=== PATIENT | male | born 1950 | race Caucasian/White ===

== ENCOUNTER 2019-10-03 13:10 | Inpatient (IN) | payer BC, MEDICARE ==
[~2019-10-03] VITALS: Ht 177.8 cm; Wt 73.9 kg
--- NOTE | 2019-10-03 13:15 | NUR ---
BIB [facility] FROM HOME,SUDDEN RIGHT HIP PAIN WHILE WALKING IN THE BATHROOM. PATIENT A/OX4, BREATHING EVEN AND UNLABORED, NO SOB NOTED. VITALS STABLE. NEEDS ATTENDED. KEPT COMFORTABLE IN BED, CHANGED INTO GOWN.
[2019-10-03] MEDS ORDERED: MORPHINE SULFATE INJ 2 MG/ML DISP.SYRIN IV ONE (13:30)
[2019-10-03] MEDS ORDERED: MORPHINE SULFATE INJ 2 MG/ML DISP.SYRIN ONE (13:36)
[2019-10-03 13:56] LABS: BASOPHILS # (AUTO) 0.1 /CMM (0.0-0.2); BASOPHILS % (AUTO) 0.5 % (0.0-2.0); EOSINOPHILS % (AUTO) 2.6 % (0.0-6.0); HEMATOCRIT 45 % (39-51); HEMOGLOBIN 14.9 g/dL (13.5-17.5); LYMPHOCYTES # (AUTO) 0.7 /CMM (0.8-4.8); MEAN CORPUSCULAR HGB CONC 33 g/dl (31.0-36.0); MEAN CORPUSCULAR VOLUME 88 fL (80-96); MONOCYTES # (AUTO) 0.7 /CMM (0.1-1.30); MONOCYTES % (AUTO) 5.9 % (2.0-12.0); NEUTROPHILS # (AUTO) 10.6 /CMM (1.8-8.9); PLATELET COUNT (AUTO) 256 /CMM (150-450); RED BLOOD CELL COUNT(AUTO) 5.13 MIL/uL (4.5-6.0); WHITE BLOOD COUNT (AUTO) 12.5 K/uL (4.3-11.0)
[2019-10-03 14:12] LABS: CALCIUM, SERUM 9.5 mg/dL (8.5-10.1); CARBON DIOXIDE 31 mmol/L (21-32); CHLORIDE 101 mmol/L (98-107); GLUCOSE 108 mg/dL (74-106); POTASSIUM 3.7 mmol/L (3.5-5.1); SODIUM SERUM 140 mmol/L (136-145); UREA NITROGEN, BLOOD 19 mg/dL (7-18)
[2019-10-03 14:31] LABS: ALANINE AMINOTRANSFERASE 27 U/L (12-78); ALBUMIN 3.6 g/dL (3.4-5.0); ALKALINE PHOSPHATASE 365 U/L (46-116); ASPARTATE AMINOTRANSFERASE 89 U/L (15-37); BILIRUBIN,DIRECT 0.1 mg/dL (0.0-0.2); BILIRUBIN,TOTAL 0.6 mg/dL (0.2-1.0); TOTAL PROTEIN, SERUM 7.4 g/dL (6.4-8.2)
[2019-10-03] MEDS ORDERED: IOHEXOL-300 100 ML VIAL IV ONE (14:58)
[2019-10-03] MEDS ORDERED: CT SWABBABLE VALVE TRANS SET 1 EA INFUS.SET MC ONE (14:58)
[2019-10-03] MEDS ORDERED: IV NS 0.9% 250 ML IV ONE (14:59)
--- NOTE | 2019-10-03 15:00 | NUR ---
PATIENT IN BED, NO DISTRESS NOTED. NEEDS ATTENDED. URINAL AT BEDSIDE.
--- NOTE | 2019-10-03 15:01 | NUR ---
Paged manager integration for consult
[2019-10-03] MEDS ORDERED: Z GUARD REMEDY 2 OZ OINT TP PRN (16:00)
[2019-10-03] MEDS ORDERED: ACETAMINOPHEN 325 MG TABLET PO PRN (16:00)
[2019-10-03] MEDS ORDERED: MORPHINE SULFATE INJ 2 MG/ML DISP.SYRIN IV PRN (16:00)
[2019-10-03] MEDS ORDERED: ONDANSETRON HCL/PF 4 MG/2 ML VIAL IVP PRN (16:00)
[2019-10-03] MEDS ORDERED: MAGNESIUM HYDROXIDE 30 ML UDC PO PRN (16:00)
[2019-10-03] MEDS ORDERED: MAG HYDROX/AL HYDROX/SIMETH 30 ML UDC PO PRN (16:00)
[2019-10-03] MEDS ORDERED: WARF-58 PO (16:12)
[2019-10-03] MEDS ORDERED: PHEN100C12 PO (16:12)
--- NOTE | 2019-10-03 16:26 | NUR ---
CALLED [facility] FOR TELE.
[2019-10-03 16:35] LABS: C-REACTIVE PROTEIN 5.3 mg/dL (0.0-0.9)
--- NOTE | 2019-10-03 17:11 | NUR ---
DR. FRANCISCO AT BEDSIDE FOR EVAL.
--- NOTE | 2019-10-03 17:11 | NUR ---
REPORT GIVEN TO DUNCAN DE LEON FOR LYRIC.
[2019-10-03] MEDS ORDERED: FEE PK DOSING 1 MIN EA MC ONE (17:18)
--- NOTE | 2019-10-03 17:41 | NUR ---
PATIENT TRANSFERRED TO ROOM 325-1 VIA ACLS PROTOCOL, ENDORSED TO DUNCAN DE LEON. PATIENT IN STABLE CONDITION.
--- NOTE | 2019-10-03 17:50 | NUR ---
BURNISHING MACHINE OPERATOR RECEIVING NOTES PATIENT RECEIVED FROM ED DUE TO R HIP FRACTURE. IN MEDICALLY STABLE CONDITION. PICTURES TAKEN AND FILED. WILL ADMIT PATIENT AND CONTINUE TO MONITOR.
[2019-10-03] MEDS ORDERED: PIPERACILLIN /TAZOBACTAM 3.375 G in IV D5W 50 ML IV ONE (18:00)
[2019-10-03] MEDS ORDERED: PIPERACILLIN /TAZOBACTAM 3.375 G in IV D5W 50 ML IV SCH (18:00)
--- NOTE | 2019-10-03 19:17 | NUR ---
COMMERCIAL LINES ACCOUNT EXECUTIVE CLOSING NOTES PATIENT IN BED, RESTING COMFORTABLY. PATIENT ON ROOM AIR BREATHING EVEN AND UNLABORED. IV ACCESS PRESENT AND INTACT; FLUSHING WELL. ALL SAFETY PRECAUTIONS IN PLACE; BED IN LOW POSITION AND LOCKED, RAILS UP X2, CALL LIGHT WITHIN REACH. WILL ENDORSE TO CASE MANAGEMENT DIRECTOR NURSE.
[2019-10-03 19:30] VITALS: BP 143/83
--- NOTE | 2019-10-03 19:40 | NUR ---
MS RN NOTES PATIENT IN BED, AWAKE, ALERT AND ORIENTED X 4. BREATHING EVEN AND UNLABORED ON ROOM AIR. SHOWS NO SIGNS OF ACUTE RESPIRATORY DISTRESS. NO ACUTE PAIN. IV RAC 18G IS CLEAN DRY AND INTACT. RUNNING ZOSYN. SHOWS NO SIGNS OF INFILTRATION, NO REDNESS. SAFETY PRECAUTIONS IN PLACE. BED IN LOWEST POSITION, LOCKED, AND CALL LIGHT KEPT WITHIN REACH. WILL CONTINUE TO MONITOR.
[2019-10-03 20:44] VITALS: BP 143/83
[2019-10-03] MEDS: VANCOMYCIN HCL 0.75 GM in IV D5W 250 ML IV SCH (21:13)
[2019-10-03] MEDS: HYDROCODONE/APAP 5/325MG 1 EACH TABLET PO PRN (23:11)
[2019-10-04] VITALS (7 sets, daily range): BP systolic 121–131; BP diastolic 69–78
[2019-10-04] MEDS: PIPERACILLIN /TAZOBACTAM 3.375 G in IV D5W 100 ML IV SCH ×2 (00:50→08:00)
[2019-10-04] MEDS: VANCOMYCIN HCL 0.75 GM in IV D5W 250 ML IV SCH ×4 (04:56→21:49)
--- NOTE | 2019-10-04 06:24 | NUR ---
FLOUR BLENDER NOTES BLOOD CULTURE RESULTS GRAM NEGATIVE RODS. NOTIFIED MD, AWAITING RESPONSE. WILL CONTINUE TO MONITOR.
--- NOTE | 2019-10-04 06:46 | NUR ---
FLOTATION TANK OPERATOR NOTES PATIENT IN BED, WITH SLEEP, ALERT AND ORIENTED X 4. BREATHING EVEN AND UNLABORED ON ROOM AIR. SHOWS NO SIGNS OF ACUTE RESPIRATORY DISTRESS. NO ACUTE PAIN. IV RAC 18G IS CLEAN DRY AND INTACT. SHOWS NO SIGNS OF INFILTRATION, NO REDNESS. NEW ORDER OF MERREM ADDED FOR BLOOD CULTURE GRAM NEGATIVE RODS. ALL DUE MEDICATIONS GIVEN. SAFETY PRECAUTIONS IN PLACE. BED IN LOWEST POSITION, LOCKED, AND CALL LIGHT KEPT WITHIN REACH. WILL CONTINUE TO MONITOR.
[2019-10-04 07:06] LABS: CANCER AG, 15-3 21.7 U/mL (0.0-25.0)
[2019-10-04] MEDS ORDERED: IOHEXOL-300 100 ML VIAL IV ONE (07:08)
[2019-10-04] MEDS ORDERED: CT SWABBABLE VALVE TRANS SET 1 EA INFUS.SET MC ONE (07:08)
[2019-10-04] MEDS ORDERED: IV NS 0.9% 250 ML IV ONE (07:08)
--- NOTE | 2019-10-04 07:20 | NUR ---
ms rn received on bed, awake,alert,oriented x4,not in any form of distress, respirations even and unlabored noted, lungs are clear,abdomen soft,positive bowel sounds,denies pain at this time,all needs attended.
--- NOTE | 2019-10-04 07:23 | NUR ---
INTERNATIONAL CONTROLLER NOTES PT LEFT FLOOR [address]
[2019-10-04] MEDS: PANTOPRAZOLE 40 MG TABLET.DR PO SCH (07:30)
--- NOTE | 2019-10-04 08:00 | NUR ---
ms rn patient npo at this time, for sx today of right hip hemiarthroplasty.
--- NOTE | 2019-10-04 08:00 | NUR ---
ms rn received on bed, awake,alert,oriented x4,not in any form distress,respierations even and unlabored.no sob noted, will monitor patient. Addendum: 10/04/19 at 1817 by GLENDY ORDONEZ RN disregard charting, wrong patient.
--- NOTE | 2019-10-04 08:35 | NUR ---
ms mosher new iv inserted at left forearm g 24, old iv is leaking. Addendum: 10/04/19 at 1817 by GLENDY ORDONEZ RN disregard charting, wrong patient.
[2019-10-04 08:36] LABS: BASOPHILS # (AUTO) 0.1 /CMM (0.0-0.2); BASOPHILS % (AUTO) 0.5 % (0.0-2.0); EOSINOPHILS % (AUTO) 4.4 % (0.0-6.0); HEMATOCRIT 40 % (39-51); HEMOGLOBIN 13.2 g/dL (13.5-17.5); LYMPHOCYTES # (AUTO) 1.1 /CMM (0.8-4.8); LYMPHOCYTES % (AUTO) 9.4 % (20.0-44.0); MEAN CORPUSCULAR HGB CONC 33 g/dl (31.0-36.0); MEAN CORPUSCULAR VOLUME 86 fL (80-96); MONOCYTES # (AUTO) 0.9 /CMM (0.1-1.30); MONOCYTES % (AUTO) 7.6 % (2.0-12.0); NEUTROPHILS % (AUTO) 78.1 % (43.0-81.0); PLATELET COUNT (AUTO) 223 /CMM (150-450); RED BLOOD CELL COUNT(AUTO) 4.66 MIL/uL (4.5-6.0); WHITE BLOOD COUNT (AUTO) 11.6 K/uL (4.3-11.0)
[2019-10-04] MEDS: MEROPENEM 1 G in IV NS 0.9% 100 ML IV SCH ×3 (08:51→20:52)
[2019-10-04 08:56] LABS: CALCIUM, SERUM 8.5 mg/dL (8.5-10.1); CREATININE 0.9 mg/dL (0.6-1.3); MAGNESIUM 1.8 mg/dL (1.8-2.4); PHOSPHORUS 3.1 mg/dL (2.5-4.9); POTASSIUM 3.9 mmol/L (3.5-5.1)
[2019-10-04 08:59] LABS: THYROID STIMULATING HORMONE 5.08 uIU/mL (0.358-3.74)
--- NOTE | 2019-10-04 09:00 | NUR ---
ms mosher breakfast served, can't tolerate it per speech therapist, clear liquids recommended.. Addendum: 10/04/19 at 1817 by GLENDY ORDONEZ RN disregard charting, wrong patient.
--- NOTE | 2019-10-04 10:00 | NUR ---
ms mosher was seen by darin garcia w/ orders made and carried out. Addendum: 10/04/19 at 1817 by GLENDY ORDONEZ RN disregard charting, wrong patient.
[2019-10-04] MEDS ORDERED: TRANEXAMIC ACID 1,000 MG in IV NS 0.9% 100 ML IV ONE (10:30)
--- NOTE | 2019-10-04 11:05 | NUR ---
ms mosher received a lactic acid result 5.1, rowena shultzied was told to let emma ashbye it. Addendum: 10/04/19 at 1817 by GLENDY ORDONEZ RN disregard charting, wrong patient.
--- NOTE | 2019-10-04 11:30 | NUR ---
ms rn went down for surgery.
[2019-10-04] MEDS ORDERED: SUCCINYLCHOLINE CHLORIDE 20 MG/ML VIAL ONE (11:46)
[2019-10-04] MEDS ORDERED: BACITRACIN 50000 UNITS/VIAL ONE (12:19)
[2019-10-04] MEDS ORDERED: BUPIVACAINE 0.5 % PF 150 MG/30 ML VIAL ONE (12:19)
--- NOTE | 2019-10-04 12:30 | NUR ---
rn id cardiac care nurse came w/ orders made and carried out. Addendum: 10/04/19 at 1818 by GLENDY ORDONEZ RN disregard charting, wrong patient.
[2019-10-04] MEDS ORDERED: VANCOMYCIN 1 GM VIAL ONE (12:57)
--- NOTE | 2019-10-04 13:47 | NUR ---
ms mosher was assessd by search lead patient to be transferred to icu now. Addendum: 10/04/19 at 1818 by GLENDY ORDONEZ RN disregard charting, wrong patient.
--- NOTE | 2019-10-04 14:00 | NUR ---
ms rn patient came back from s/x, s/p right hemiarthroplasty, site clean and dry, denies pain at this time,all needs attended.
[2019-10-04 14:01] LABS: BASOPHILS % (AUTO) 0.3 % (0.0-2.0); EOSINOPHILS % (AUTO) 1.5 % (0.0-6.0); HEMATOCRIT 41 % (39-51); HEMOGLOBIN 13.4 g/dL (13.5-17.5); LYMPHOCYTES # (AUTO) 0.8 /CMM (0.8-4.8); LYMPHOCYTES % (AUTO) 5.2 % (20.0-44.0); MEAN CORPUSCULAR HGB CONC 33 g/dl (31.0-36.0); MEAN CORPUSCULAR VOLUME 87 fL (80-96); MONOCYTES # (AUTO) 0.6 /CMM (0.1-1.30); MONOCYTES % (AUTO) 3.7 % (2.0-12.0); NEUTROPHILS # (AUTO) 13.5 /CMM (1.8-8.9); NEUTROPHILS % (AUTO) 89.3 % (43.0-81.0); PLATELET COUNT (AUTO) 198 /CMM (150-450); RED BLOOD CELL COUNT(AUTO) 4.72 MIL/uL (4.5-6.0); WHITE BLOOD COUNT (AUTO) 15.1 K/uL (4.3-11.0)
[2019-10-04] MEDS ORDERED: IV LR 1000 ML 1,000 ML IV PRN (14:30)
[2019-10-04] MEDS ORDERED: HYDROCODONE/APAP 5/325MG 1 EACH TABLET PO PRN (14:30)
--- NOTE | 2019-10-04 18:23 | NUR ---
ms rn on bed, all needs attended.
--- NOTE | 2019-10-04 19:54 | NUR ---
RN NOTES PATIENT IN BED, AWAKE, ALERT AND ORIENTED X 4. BREATHING EVEN AND UNLABORED ON ROOM AIR. SHOWS NO SIGNS OF ACUTE RESPIRATORY DISTRESS. NO ACUTE PAIN. IV RAC AND R FOREARM 18G IS CLEAN DRY AND INTACT. SHOWS NO SIGNS OF INFILTRATION, NO REDNESS. S/P R HEMIATHROPLASTY BY DR. RAMIREZ. SAFETY PRECAUTIONS IN PLACE. BED IN LOWEST POSITION, LOCKED, AND CALL LIGHT KEPT WITHIN REACH. WILL CONTINUE TO MONITOR.
[2019-10-04] MEDS: CEFAZOLIN 2 GM in IV D5W 100 ML IV SCH (20:20)
[2019-10-05] VITALS: BP 130/75
[2019-10-05] MEDS: CEFAZOLIN 2 GM in IV D5W 100 ML IV SCH (03:54)
[2019-10-05 04:21] LABS: BASOPHILS # (AUTO) 0.2 /CMM (0.0-0.2); BASOPHILS % (AUTO) 1.4 % (0.0-2.0); EOSINOPHILS % (AUTO) 1.7 % (0.0-6.0); HEMATOCRIT 40 % (39-51); LYMPHOCYTES # (AUTO) 0.9 /CMM (0.8-4.8); LYMPHOCYTES % (AUTO) 6.7 % (20.0-44.0); MEAN CORPUSCULAR HGB CONC 33 g/dl (31.0-36.0); MEAN CORPUSCULAR VOLUME 86 fL (80-96); MONOCYTES # (AUTO) 0.9 /CMM (0.1-1.30); MONOCYTES % (AUTO) 6.6 % (2.0-12.0); NEUTROPHILS % (AUTO) 83.6 % (43.0-81.0); PLATELET COUNT (AUTO) 213 /CMM (150-450); RED BLOOD CELL COUNT(AUTO) 4.57 MIL/uL (4.5-6.0); WHITE BLOOD COUNT (AUTO) 13.1 K/uL (4.3-11.0)
[2019-10-05 04:31] VITALS: BP 129/75
[2019-10-05] MEDS: MEROPENEM 1 G in IV NS 0.9% 100 ML IV SCH ×3 (04:40→20:54)
[2019-10-05 04:48] LABS: CALCIUM, SERUM 8.6 mg/dL (8.5-10.1)
[2019-10-05 04:52] VITALS: BP 129/75
[2019-10-05] MEDS: VANCOMYCIN HCL 0.75 GM in IV D5W 250 ML IV SCH ×3 (05:18→21:35)
--- NOTE | 2019-10-05 06:56 | NUR ---
POWERHOUSE OILER NOTES PATIENT IN BED, WITH SLEEP, ALERT AND ORIENTED X 4. BREATHING EVEN AND UNLABORED ON ROOM AIR. SHOWS NO SIGNS OF ACUTE RESPIRATORY DISTRESS. NO ACUTE PAIN. IV RAC 18G AND R WRIST 18G IS CLEAN DRY AND INTACT RUNNING LR AT 75ML/HR.. SHOWS NO SIGNS OF INFILTRATION, NO REDNESS. ALL DUE MEDICATIONS GIVEN. SAFETY PRECAUTIONS IN PLACE. BED IN LOWEST POSITION, LOCKED, AND CALL LIGHT KEPT WITHIN REACH. WILL ENDORSE TO ONCOMING NURSE.
--- NOTE | 2019-10-05 07:30 | NUR ---
RN OPENING NOTE Patient is resting in bed, A/O x4, showing no signs of acute distress or SOB, 96% on RA. IV line in the RAC#18g is clean and intact. Patient has no complaints of pain at this time. Surgical site noted and is clean and dry. Bed is in lowest position, side rails x3 in upright position, call light is within reach and patient is aware of how to call for assistance when needed. Will continue with plan of care.
[2019-10-05 08:00] VITALS: BP 123/85
[2019-10-05] MEDS: PANTOPRAZOLE 40 MG TABLET.DR PO SCH (08:03)
[2019-10-05] MEDS: ENOXAPARIN SODIUM 40 MG/0.4 ML DISP.SYRIN SQ SCH (09:00)
--- NOTE | 2019-10-05 10:00 | NUR ---
RN NOTE Received order from Micky JAMES to DC talavera catheter. Talavera Dc'd urinal at the bedside.
[2019-10-05 16:00] VITALS: BP 142/88
--- NOTE | 2019-10-05 19:20 | NUR ---
RN CLOSING NOTE Patient is resting in bed, A/O x4, showing no signs of acute distress or SOB, 96% on RA. IV line in the RAC#18g is clean and intact. Patient has no complaints of pain at this time. Surgical site noted and is clean and dry. All patient needs met, all due medications given. Patient kept clean and dry throughout shift. Bed is in lowest position, side rails x3 in upright position, call light is within reach and patient is aware of how to call for assistance when needed. Will continue with plan of care.
--- NOTE | 2019-10-05 19:30 | NUR ---
MS RN NOTES RECEIVED ON BED ON HIGH FOWLERS POSITION,BREATHING REGULAR,NOT IN ANY FORM OF DISTRESS,S/P RIGHT HIP DEVEN ARTHROPLASTY 0N 10/03,DRESSING INTACT AND DRY.PAIN TOLERABLE AT THE MOMENT.SALINE LOCK RIGHT AC INTACT AND PATENT.REFUSED DVT PUMP,ON GEL BED FOR SKIN MANAGEMENT.CALL LIGHT IN REACH,NEEDS ANTICIPATED.
[2019-10-05 20:00] VITALS: BP 139/87
[2019-10-06] MEDS: VANCOMYCIN HCL 0.75 GM in IV D5W 250 ML IV SCH ×3 (05:00→21:12)
--- NOTE | 2019-10-06 05:00 | NUR ---
MS RN NOTES MORNING CARE RENDERED,TOLERATED WELL.PAIN TOLERABLE.ABDUCTION PILLOW IN USED.
[2019-10-06] MEDS: MEROPENEM 1 G in IV NS 0.9% 100 ML IV SCH ×3 (06:02→20:40)
--- NOTE | 2019-10-06 06:17 | NUR ---
MS RN NOTES FAIRLY RESTED,SLEPT WELL AT NIGHT.IV ABX GIVEN,NO ADVERSE SIDE EFFECT NOTED.OFFERED PAIN MEDICINE BUT REFUSED.SAYS 'I'M OKAY".SALINE LOCK REMAINS PATENT ON RIGHT AC.CALL LIGHT IN REACH,NEEDS ATTENDED.WILL ENDORSE TO FAVIOLA DE LEON FOR LYRIC.
[2019-10-06 07:20] LABS: BASOPHILS % (AUTO) 0.1 % (0.0-2.0); EOSINOPHILS % (AUTO) 0.7 % (0.0-6.0); HEMATOCRIT 41 % (39-51); HEMOGLOBIN 13.6 g/dL (13.5-17.5); LYMPHOCYTES # (AUTO) 1.1 /CMM (0.8-4.8); LYMPHOCYTES % (AUTO) 6.3 % (20.0-44.0); MEAN CORPUSCULAR HGB CONC 33 g/dl (31.0-36.0); MEAN CORPUSCULAR VOLUME 87 fL (80-96); MONOCYTES # (AUTO) 1.5 /CMM (0.1-1.30); MONOCYTES % (AUTO) 8.5 % (2.0-12.0); NEUTROPHILS # (AUTO) 14.5 /CMM (1.8-8.9); NEUTROPHILS % (AUTO) 84.4 % (43.0-81.0); PLATELET COUNT (AUTO) 241 /CMM (150-450); RED BLOOD CELL COUNT(AUTO) 4.76 MIL/uL (4.5-6.0); WHITE BLOOD COUNT (AUTO) 17.2 K/uL (4.3-11.0)
[2019-10-06 07:21] LABS: CALCIUM, SERUM 8.9 mg/dL (8.5-10.1); CREATININE 0.9 mg/dL (0.6-1.3); POTASSIUM 3.9 mmol/L (3.5-5.1)
--- NOTE | 2019-10-06 07:55 | NUR ---
MS/RN Opening note Patient received from retail shift supervisor. A/O X4, vital signs within normal range for patient, denies pain at this time. Heplock to right AC flushing well with normal saline, no signs of infiltration seen. Call light within reach, patient aware of how to use and call for help. Side rails X3 in upright position, bed in low setting. Will continue to monitor and ensure safety.
[2019-10-06 08:00] VITALS: BP 135/83
[2019-10-06] MEDS: ENOXAPARIN SODIUM 40 MG/0.4 ML DISP.SYRIN SQ SCH (08:26)
[2019-10-06] MEDS: PANTOPRAZOLE 40 MG TABLET.DR PO SCH (08:26)
[2019-10-06] MEDS: HYDROCODONE/APAP 5/325MG 1 EACH TABLET PO PRN (08:40)
--- NOTE | 2019-10-06 08:45 | NUR ---
MS/RN Pre medicate Patient pre medicated per PT request, will ambulate patient at 0930
--- NOTE | 2019-10-06 10:00 | NUR ---
MS/RN PT Patient ambulating in hallway using walker with PT.
--- NOTE | 2019-10-06 14:00 | NUR ---
MS/RN Rounds Denies pain or discomfort. No needs at this time.
[2019-10-06 16:00] VITALS: BP 179/77
--- NOTE | 2019-10-06 17:31 | NUR ---
MS/RN Medications IVAB administered as ordered, no reaction noted.
--- NOTE | 2019-10-06 18:12 | NUR ---
MS/RN End note Patient remains in stable condition. No new needs or concerns at this time, denies pain or discomfort. Will endorse to prosthetist.
--- NOTE | 2019-10-06 19:35 | NUR ---
MS RN NOTES RECEIVED ON BED A/O X4,BREATHING REGULAR,NOT IN ANY FORM OF DISTRESS.SALINE LOCK RIGHT AC INTACT AND PATENT,SURGICAL INCISION WITH DRESSING INTACT AND DRY.INCONTINENT OF URINE.PAIN TOLERABLE AT THE MOMENT.CALL LIGHT IN REACH,NEEDS ANTICIPATED.
[2019-10-06 20:00] VITALS: BP 137/79
[2019-10-07] MEDS: MEROPENEM 1 G in IV NS 0.9% 100 ML IV SCH ×2 (04:39→13:54)
[2019-10-07] MEDS: VANCOMYCIN HCL 0.75 GM in IV D5W 250 ML IV SCH ×2 (05:41→14:39)
[2019-10-07 06:22] LABS: BASOPHILS % (AUTO) 0.2 % (0.0-2.0); EOSINOPHILS % (AUTO) 1.2 % (0.0-6.0); HEMATOCRIT 41 % (39-51); HEMOGLOBIN 13.4 g/dL (13.5-17.5); LYMPHOCYTES # (AUTO) 0.9 /CMM (0.8-4.8); LYMPHOCYTES % (AUTO) 5.7 % (20.0-44.0); MEAN CORPUSCULAR HGB CONC 33 g/dl (31.0-36.0); MEAN CORPUSCULAR VOLUME 86 fL (80-96); MONOCYTES # (AUTO) 1.2 /CMM (0.1-1.30); MONOCYTES % (AUTO) 7.6 % (2.0-12.0); NEUTROPHILS # (AUTO) 13.9 /CMM (1.8-8.9); NEUTROPHILS % (AUTO) 85.3 % (43.0-81.0); PLATELET COUNT (AUTO) 254 /CMM (150-450); RED BLOOD CELL COUNT(AUTO) 4.69 MIL/uL (4.5-6.0); WHITE BLOOD COUNT (AUTO) 16.4 K/uL (4.3-11.0)
--- NOTE | 2019-10-07 06:36 | NUR ---
MS RN NOTES FAIRLY RESTED AT NIGHT.ALL DUE IV ABX ADMINISTERED,NO COMPLAINTS OF PAIN THRU OUT SHIFT.CALL LIGHT IN REACH,NEEDS ATTENDED.WILL ENDORSE TO DAY NURSE FOR LYRIC.
[2019-10-07 06:48] LABS: CALCIUM, SERUM 8.8 mg/dL (8.5-10.1); CREATININE 0.8 mg/dL (0.6-1.3); POTASSIUM 3.6 mmol/L (3.5-5.1)
--- NOTE | 2019-10-07 07:15 | NUR ---
MS RN OPENING NOTES RECEIVED PT IN BED, AWAKE AT THIS TIME. HOB ELEVATED TO SEMI FOWLERS POSITION. BREATHING EVEN AND UNLABORED. PT APPEARS COMFORTABLE WITH NO S/S OF ANY ACUTE DISTRESS. ,S/P RIGHT HIP DEVEN ARTHROPLASTY 0N 10/03, DRESSING INTACT AND DRY. NO C/O PAIN AT THIS TIME. IV ACCESS ON RAC G#18, INTACT AND PATENT. SAFETY PRECAUTIONS IN PLACE. BED IN LOCKED LOWEST POSITION, SIDE RAILS UP X 2. CALL LIGHT WITHIN REACH. WILL CONTINUE TO MONITOR
[2019-10-07 07:57] VITALS: BP 130/80
[2019-10-07] MEDS: PANTOPRAZOLE 40 MG TABLET.DR PO SCH (08:22)
[2019-10-07] MEDS: ENOXAPARIN SODIUM 40 MG/0.4 ML DISP.SYRIN SQ SCH (08:30)
--- NOTE | 2019-10-07 08:30 | NUR ---
PT REFUSED ADMINISTRATION OF LOVENOX 40MG/0.4ML SQ. PT TEACHINGS GIVEN AND PT VERBALIZED UNDERSTANDING. JERRELL ROVING WEIGHT GAUGER, WAS MADE AWARE
[2019-10-07 16:04] VITALS: BP 146/89
--- NOTE | 2019-10-07 18:43 | NUR ---
MS RN CLOSING NOTES PT IN BED, AWAKE AT THIS TIME. HOB ELEVATED TO SEMI FOWLERS POSITION. PT REMAINED STABLE THROUGHOUT SHIFT AND AT THIS TIME. ALL NEEDS ATTENDED TO AND ANTICIPATED ORDERED. PT KEPT CLEAN AND DRY. SAFETY PRECAUTIONS IN PLACE. BED IN LOCKED LOWEST POSITION, SIDE RAILS UP X 2. CALL LIGHT WITHIN REACH. WILL ENDORSE TO NIGHT NURSE FOR LYRIC
--- NOTE | 2019-10-07 19:10 | NUR ---
RN Notes Received patient awake, alert and oriented x4, on room air and tolerated well. Denies any pain and discomfort. IV access on right AC patent and intact. Abductor pillow in place between legs.Plan of care discussed with the patient and verbalized understanding. Safety measures in place. All needs attended. Will continue to monitor patient.
[2019-10-07 20:00] VITALS: BP 136/87
[2019-10-07] MEDS: CEFAZOLIN 2 GM in IV NS 0.9% 100 ML IV SCH (20:54)
[2019-10-07 22:00] VITALS: BP 136/87
[2019-10-08] MEDS: CEFAZOLIN 2 GM in IV NS 0.9% 100 ML IV SCH (04:52)
--- NOTE | 2019-10-08 06:25 | NUR ---
RN Notes Patient sleep well overnight, vital signs stable, afebrile. Denies pain and discomfort, kept abductor pillow between the legs. All needs met. Will endorse for continuity of care.
--- NOTE | 2019-10-08 07:10 | NUR ---
MS RN OPENING NOTES RECEIVED PT IN BED, AWAKE AT THIS TIME. AO X4. BREATHING EVEN AND UNLABORED. PT APPEARS COMFORTABLE WITH NO S/S OF ANY ACUTE DISTRESS. PT ABLE TO VERBALIZE NEEDS. S/P RIGHT HIP DEVEN ARTHROPLASTY 0N 10/03, DRESSING INTACT AND DRY. NO C/O PAIN AT THIS TIME. IV ACCESS ON RAC G#18, INTACT AND PATENT. PT USES URINAL. SAFETY PRECAUTIONS IN PLACE. BED IN LOCKED LOWEST POSITION, SIDE RAILS UP X 2. CALL LIGHT WITHIN REACH. WILL CONTINUE TO MONITOR
[2019-10-08 07:48] LABS: BASOPHILS # (AUTO) 0.1 /CMM (0.0-0.2); BASOPHILS % (AUTO) 0.4 % (0.0-2.0); EOSINOPHILS % (AUTO) 3.1 % (0.0-6.0); HEMATOCRIT 40 % (39-51); LYMPHOCYTES # (AUTO) 0.8 /CMM (0.8-4.8); LYMPHOCYTES % (AUTO) 5.8 % (20.0-44.0); MEAN CORPUSCULAR HGB CONC 33 g/dl (31.0-36.0); MEAN CORPUSCULAR VOLUME 87 fL (80-96); MONOCYTES # (AUTO) 0.9 /CMM (0.1-1.30); MONOCYTES % (AUTO) 6.5 % (2.0-12.0); NEUTROPHILS # (AUTO) 12.1 /CMM (1.8-8.9); NEUTROPHILS % (AUTO) 84.2 % (43.0-81.0); PLATELET COUNT (AUTO) 291 /CMM (150-450); WHITE BLOOD COUNT (AUTO) 14.3 K/uL (4.3-11.0)
[2019-10-08 08:00] VITALS: BP 130/78
[2019-10-08 08:03] LABS: CALCIUM, SERUM 8.6 mg/dL (8.5-10.1); CREATININE 0.8 mg/dL (0.6-1.3); POTASSIUM 3.6 mmol/L (3.5-5.1)
[2019-10-08] MEDS: PANTOPRAZOLE 40 MG TABLET.DR PO SCH (08:26)
[2019-10-08] MEDS: ENOXAPARIN SODIUM 40 MG/0.4 ML DISP.SYRIN SQ SCH (08:38)
[2019-10-08] MEDS ORDERED: CEFT2FRO2 IV (11:59)
[2019-10-08] MEDS ORDERED: HYDR-3972 PO (11:59)
[2019-10-08] MEDS ORDERED: CEFTRIAXONE 2 G in IV D5W 100 ML IV SCH (13:00)
--- NOTE | 2019-10-08 16:03 | NUR ---
MS RN NOTES MIDLINE INSERTED ON JOSE ALEJANDRO G# 18. NO BLEEDING, NO SWELLING NOTED
--- NOTE | 2019-10-08 16:30 | NUR ---
DISCHARGED HOME WITH HOME HEALTH ([facility]STED HOME HEALTH) . IV [facility] .WITH STABLE V/S.IV H/L REMOVED TO RT AC WITH NO BLEEDINGOR SWELLING NOTED. PT REFUSED DRESSING CHANGE RT HIP SURGICAL INCISION.DRESSING CLEAN AND DRY.PT IS SO EAGER TO GO HOME.PT WAS PICKED UP BY HIS FRIEND GERRI VIA PRIVATE CAR.DISCHARGE INSTRUCTIONS AND FOLLOW UPS GIVEN.
== END 2019-10-08 16:30 | disposition home health service (06) | DRG 469 ==
LOC: ER 13:15 → TELE 16:46 → MED 10-05 12:28
PROVIDERS: ADMIT Registered Nurse; ATTEND Nurse Practitioner Acute Care
PROC: 0QW604Z Revision of Internal Fixation Device in Right Upper Femur, Open Approach (ICD-10-PCS; 2019-10-03)
PROC: 0SRR0JZ Replacement of Right Hip Joint, Femoral Surface with Synthetic Substitute, Open Approach (ICD-10-PCS; principal; 2019-10-04)
DX: M84.459A Pathological fracture, hip, unspecified, initial encounter for fracture (principal); J15.6 Pneumonia due to other Gram-negative bacteria; C78.02 Secondary malignant neoplasm of left lung; C78.7 Secondary malignant neoplasm of liver and intrahepatic bile duct; J91.0 Malignant pleural effusion; C79.51 Secondary malignant neoplasm of bone; C79.70 Secondary malignant neoplasm of unspecified adrenal gland; J98.11 Atelectasis; R64 Cachexia; C18.9 Malignant neoplasm of colon, unspecified; M46.28 Osteomyelitis of vertebra, sacral and sacrococcygeal region; Y93.01 Activity, walking, marching and hiking; Y92.002 Bathroom of unspecified non-institutional (private) residence as the place of occurrence of the external cause; I25.10 Atherosclerotic heart disease of native coronary artery without angina pectoris; Z90.49 Acquired absence of other specified parts of digestive tract; I11.0 Hypertensive heart disease with heart failure; I50.9 Heart failure, unspecified; Z87.19 Personal history of other diseases of the digestive system; Z86.711 Personal history of pulmonary embolism; Z85.528 Personal history of other malignant neoplasm of kidney; Z85.048 Personal history of other malignant neoplasm of rectum, rectosigmoid junction, and anus; Z80.3 Family history of malignant neoplasm of breast; Z79.01 Long term (current) use of anticoagulants; E61.1 Iron deficiency; R56.9 Unspecified convulsions; Z90.2 Acquired absence of lung [part of]
CPT/HCPCS: 36415; 71045-TC; 71260-TC; 72170-TC; 73502; 73700-TC; 80048-TC; 80061-TC; 80076-TC; 80202-TC; 82378; 82728-TC; 83540-TC; 83605-TC; 83615-TC; 83735-TC; 84100-TC; 84439-TC; 84443-TC; 84484-TC; 85025-TC; 85730-TC; 86140-TC; 86300; 86304; 86850-TC; 86921-TC; 87040-TC; 87081-TC; 87186-TC; 88305-TC; 88311-TC; 88341; 88342; 93307-TC; 97110-TC; 97116-TC; 97530-TC; A4217; C1776; G0378; J0330; J0690; J0696; J1100; J1650; J2185; J2270; J2405; J2543; J3370; J3490; J7030; J7050; J7060; J7120; Q9967

== ENCOUNTER 2019-11-04 12:45 | Inpatient (IN) | payer BC, MEDICARE ==
[~2019-11-04] VITALS: Ht 177.8 cm; Wt 68.5 kg
[~2019-11-04 12:45] MED LIST: CEFT2FRO2 IV; HYDR-3972 PO; PHEN100C12 PO; WARF-58 PO
--- NOTE | 2019-11-04 12:55 | NUR ---
[id number] FRM HOME FOR WEAKNESS, GLF LAST NIGHT AND NOTED BLOOD IN STOOL THIS MORNING. BG 98 ORDER DISPATCHER PATIENT A/OX2-3 WITH CONFUSION AT TIMES. PATIENT CHANGED INTO A GOWN, ATTACHED TO THE TOOL DESIGN DRAFTSPERSON.
[2019-11-04] MEDS ORDERED: DIPH1TAB PO (13:11)
[2019-11-04] MEDS ORDERED: HYDR-4384 PO (13:11)
[2019-11-04] MEDS ORDERED: LEVO150T8 PO (13:11)
--- NOTE | 2019-11-04 13:12 | NUR ---
PAGED [facility].
[2019-11-04 13:20] LABS: BASOPHILS # (AUTO) 0.1 /CMM (0.0-0.2); BASOPHILS % (AUTO) 0.5 % (0.0-2.0); EOSINOPHILS % (AUTO) 2.4 % (0.0-6.0); HEMATOCRIT 43 % (39-51); HEMOGLOBIN 14.1 g/dL (13.5-17.5); LYMPHOCYTES # (AUTO) 1.2 /CMM (0.8-4.8); LYMPHOCYTES % (AUTO) 7.3 % (20.0-44.0); MEAN CORPUSCULAR HGB CONC 33 g/dl (31.0-36.0); MEAN CORPUSCULAR VOLUME 88 fL (80-96); MONOCYTES # (AUTO) 1.3 /CMM (0.1-1.30); MONOCYTES % (AUTO) 8.2 % (2.0-12.0); NEUTROPHILS # (AUTO) 13.1 /CMM (1.8-8.9); NEUTROPHILS % (AUTO) 81.6 % (43.0-81.0); PLATELET COUNT (AUTO) 279 /CMM (150-450); RED BLOOD CELL COUNT(AUTO) 4.91 MIL/uL (4.5-6.0); WHITE BLOOD COUNT (AUTO) 16.1 K/uL (4.3-11.0)
[2019-11-04] MEDS ORDERED: WARF7.5T23 PO (13:24)
[2019-11-04] MEDS ORDERED: CAPE500T PO (13:25)
[2019-11-04] MEDS ORDERED: CAPE500T15 PO (13:25)
[2019-11-04 13:29] LABS: CALCIUM, SERUM 9.8 mg/dL (8.5-10.1); CARBON DIOXIDE 29 mmol/L (21-32); CHLORIDE 99 mmol/L (98-107); CREATININE 0.9 mg/dL (0.6-1.3); GLUCOSE 81 mg/dL (74-106); SODIUM SERUM 137 mmol/L (136-145); UREA NITROGEN, BLOOD 33 mg/dL (7-18)
--- NOTE | 2019-11-04 13:38 | NUR ---
LACTIC 2.4
[2019-11-04 13:42] LABS: ALANINE AMINOTRANSFERASE 32 U/L (12-78); ALBUMIN 3.4 g/dL (3.4-5.0); ALKALINE PHOSPHATASE 767 U/L (46-116); ASPARTATE AMINOTRANSFERASE 184 U/L (15-37); B-TYPE NATRIURETIC PEPTIDE 2936 PG/ML (0-125); BILIRUBIN,DIRECT 0.2 mg/dL (0.0-0.2); BILIRUBIN,TOTAL 0.8 mg/dL (0.2-1.0); TOTAL PROTEIN, SERUM 7.4 g/dL (6.4-8.2)
[2019-11-04] MEDS ORDERED: VANCOMYCIN HCL 1 GM in IV D5W 260 ML IV ONE (14:00)
[2019-11-04] MEDS ORDERED: PIPERACILLIN /TAZOBACTAM 3.375 G in IV D5W 50 ML IV ONE (14:00)
[2019-11-04 14:24] LABS: BAND % (MANUAL) 4 % (0.0-5.0); LYMPHOCYTES % (MANUAL) 10 % (16-48); NEUTROPHILS % (MANUAL) 77 (42-76)
[2019-11-04 14:25] LABS: EOSINOPHILS % (MANUAL) 3 % (0-4); MONOCYTES % (MANUAL) 6 % (0-11.0)
--- NOTE | 2019-11-04 14:42 | NUR ---
PATIENT RESTING, NO DISTRESS NOTED. PATIENT WAS SEEN AND EVALUATED BY RAUL GRACE DNP.
[2019-11-04 16:00] VITALS: BP 126/66
[2019-11-04] MEDS ORDERED: MAG HYDROX/AL HYDROX/SIMETH 30 ML UDC PO PRN (16:00)
[2019-11-04] MEDS ORDERED: ACETAMINOPHEN 325 MG TABLET PO PRN (16:00)
[2019-11-04] MEDS ORDERED: TEMAZEPAM 15 MG CAPSULE PO PRN (16:00)
[2019-11-04] MEDS ORDERED: Z GUARD REMEDY 2 OZ OINT TP PRN (16:00)
[2019-11-04] MEDS ORDERED: MORPHINE SULFATE INJ 2 MG/ML DISP.SYRIN IV PRN (16:00)
[2019-11-04] MEDS ORDERED: MAGNESIUM HYDROXIDE 30 ML UDC PO PRN (16:00)
[2019-11-04] MEDS ORDERED: ONDANSETRON HCL/PF 4 MG/2 ML VIAL IVP PRN (16:00)
--- NOTE | 2019-11-04 16:40 | NUR ---
PATIENT TRANSFERRED TO ROOM 110 VIA ACLS PROTOCOL. ENDORSED TO JANELLE RN. PATIENT NOTED TO HAVE A WOUND ON RIGHT HIP. PATIENT HAD A BM AND PERICARE PROVIDED.
[2019-11-04] MEDS ORDERED: FEE PK DOSING 1 MIN EA MC ONE (16:46)
--- NOTE | 2019-11-04 16:46 | NUR ---
rn notes patient received from ER. right hip open wound present, scratches to r elbow and bruise on head. Photos taken and TOWER ERECTOR Osmani Mosqueda aware.
[2019-11-04] MEDS ORDERED: LORAZEPAM INJ 2 MG/ML VIAL IV PRN (17:30)
--- NOTE | 2019-11-04 18:08 | NUR ---
rn notes Patient remains on room air, no sob noted, vital signs stable and patient denies pain at this time. A/O x4 and is able to verbalize needs and wants. Tele box on, with NSR. R hip open wound with mepilexOsmani aware. Bed at the lowest setting, call light within reach, side rails up x2.
--- NOTE | 2019-11-04 19:10 | NUR ---
RN NOTES: RECEIVED AWAKE ON BED HE IS HOLDING HIS PHONE,A/OX1, HE KNOWS HIS NAME, BUT WHEN YOU ASKED HIS QUESTION HE LOOKS CONFUSED AND UNABLE TO GIVE INFORMATION WELL. WITH IVF ONGOING OF NS AT 75 ML/HR VIA LAC G#18, ON TELE MONITOR ST-115, ON NPO HE HAS A RIGHT HIP WOUND, DRESSING INTACT, BIOMED TECH IS AWARE PER ENDORSEMENT.ORIENTED TO UNIT AND STAFF,BED LOW AND LOCKED, CALL LIGHT KEPT WITHIN EASY REACH.FALL,SAFETY AND ASPIRATION PRECAUTION OBSERVED, NON LABORED BREATHING ON O2 AT 2-3L/MIN VIA NC.
--- NOTE | 2019-11-04 19:20 | NUR ---
RN NOTES: DR. PORTILLO(ONCOLOGIST) CALLED, SHE NOTIFY RN THAT SHE WILL START KEPPRA AND DECADRON IV, SHE ASKED HOW IS THE PATIENT, RN NOTIFIED THAT PATIENT LOOKS CONFUSED HE ONLY KNOWS HIS NAME AND UNABLE TO GIVE INFORMATION, ALSO NOTIFIED IF ITS OK WE WILL PUT HIM IN CONDOM CATH SO THAT WE CAN MONITOR HIS OUTPUT,PER OUTGOING SHIFT HE DONT HAVE URINE OUTPUT YET, SHE AGREED.SHE ALSO ASKED FOR THE TELEPHONE NUMBER OF RESPONSIBLE LIBERTARIAN BECAUSE SHE WANTS TO DISCUSS THE GOAL FOR THE PATIENT STAY, AND WILL DO CT SCAN OF THE CHEST WITH CONTRAST.
--- NOTE | 2019-11-04 19:55 | NUR ---
RN NOTES; - PROCEDURE WAS EXPLAINED TO PATIENT WELL TO [employer],ABLE TO GET CONSENT FROM MR.MEAD HERNÁNDEZ-[employer] FOR THE PATIENT THROUGH TELEPHONE CONSENT AND WITNESSED BY ANOTHER RN-DOM, WE WERE BOTH ABLE TO SPEAK WITH MR. HERNÁNDEZ AND HE VERBALLY SAY HE AGREE TO DO THE CT. CHEST WITH CONTRAST. -AFTER CONSENT OBTAIN CALLED RADIOLOGY DEPARTMENT SPOKE WITH RAI ,NOTIFIED, PATIENT IS READY AND CONSENT TAKEN VIA PHONE.
[2019-11-04 20:00] VITALS: BP 138/83
[2019-11-04] MEDS: DEXAMETHASONE SOD PHOSPHATE 4 MG/ML VIAL IV SCH (20:18)
--- NOTE | 2019-11-04 20:20 | NUR ---
RN NOTES: PATIENT LEFT FOR CT SCAN AND CAME BACK AT 2100. DUE MEDICATION GIVEN.
[2019-11-04] MEDS ORDERED: IOHEXOL-300 100 ML VIAL IV ONE (20:34)
[2019-11-04] MEDS: LEVETIRACETAM (500MG) 500 MG in IV NS 0.9% 100 ML IV SCH (20:43)
[2019-11-04] MEDS: PANTOPRAZOLE 40 MG VIAL IV SCH (21:11)
--- NOTE | 2019-11-04 22:02 | NUR ---
RN NOTES: HE PASS URINE IN MODERATE AMOUNT IN THE HIS BRIEF, REFUSED TO HAVE CONDOM CATH, WILL CONTINUE TO MONITOR, HE AGREE TO USE BRIEF.NON LABORED BREATHING.COOPERATIVE. Addendum: 11/05/19 at 0345 by SALINA NAVARRO RN ADDED NOTED: OPEN WOUND ON RIGHT HIP DRESSING IS WET BY URINE, WOUND SITE CLEANSE WITH NS, PAT DRY AND COVER WITH MEPELEX.
[2019-11-04] MEDS: VANCOMYCIN HCL 0.75 GM in IV D5W 250 ML IV SCH (22:25)
[2019-11-05] VITALS: BP 122/78
[2019-11-05] MEDS: DEXAMETHASONE SOD PHOSPHATE 4 MG/ML VIAL IV SCH ×4 (00:02→18:08)
[2019-11-05] MEDS: PIPERACILLIN /TAZOBACTAM 3.375 G in IV D5W 50 ML IV SCH ×4 (00:03→18:09)
--- NOTE | 2019-11-05 00:30 | NUR ---
RN NOTES: EXPLAINED TO HIM IT WILL BE HELPFUL TO HAVE A CONDOM CATH BECAUSE HE HAS AN OPEN WOUND ON THE RIGHT HIP, HE AGREE, CONDOM CATH APPLIED, AFTER AN HOUR HE HAS 100 CC URINE OUTPUT, KEPT MONITORED.
--- NOTE | 2019-11-05 03:51 | NUR ---
RN NOTES: REMAINS AFEBRILE, NO PAIN OR DISCOMFORT EVEN DURING REPOSITIONING, ABLE TO SLEEP AT SHORT INTERVALS, NEEDS ATTENDED. CALL LIGHT KEPT WITHIN EASY REACH.
[2019-11-05 04:00] VITALS: BP 109/70
[2019-11-05] MEDS: IV NS 0.9% 1,000 ML IV PRN (04:48)
[2019-11-05] MEDS: VANCOMYCIN HCL 0.75 GM in IV D5W 250 ML IV SCH ×3 (06:00→22:39)
--- NOTE | 2019-11-05 06:24 | NUR ---
RN NOTES: AWAKE, NO COMPLAINTS OF PAIN OR DISCOMFORT, REMAINS AFEBRILE, NO SEIZURE NOTED, ON KEPPRA AND DECADRON IV, KEPT NPO, HAD 1 BM SEMI SOLID IN CONSISTENCY,DARK BROWN IN COLOR, NO TRACE OF BLOOD OR ANY SIGN OF GI BLEED.KEPT ON CLOSE VISUAL CHECK. ENDORSED FOR CONTINUITY OF CARE, FOR BLOOD TEST THIS MORNING, TO F/U CT CHEST AND COVID TEST RESULT DONE LAST NIGHT,FOR NEUROLOGIST CONSULT, GI CONSULT AND WOUND CONSULT.
--- NOTE | 2019-11-05 07:30 | NUR ---
Tele/RN Opening Note Relieved patient AO x 1-2, confuse, able to responds all stimuli, does no c/o pain or any discomfort. Skin is warm to touch, keep clean/dry, intact IV site running NS at 75 ml/hr. Respiratory even and unlabored with oxygen at 2LPM and O2sat 98%, no SOB or distress observed. Kept low position of bed and locked wheel with elevated head of the bed for secure airway. Call light within reach, will continue to monitor.
[2019-11-05 08:00] VITALS: BP 110/74
[2019-11-05 08:24] LABS: D-DIMER 5.18 mg/L(FEU (0.17-0.50)
[2019-11-05 08:25] LABS: ALBUMIN 2.6 g/dL (3.4-5.0); BILIRUBIN,DIRECT 0.2 mg/dL (0.0-0.2); BILIRUBIN,TOTAL 0.6 mg/dL (0.2-1.0); CALCIUM, SERUM 8.8 mg/dL (8.5-10.1); CREATININE 0.8 mg/dL (0.6-1.3); PHOSPHORUS 4.2 mg/dL (2.5-4.9); TOTAL PROTEIN, SERUM 6.2 g/dL (6.4-8.2)
[2019-11-05 08:39] LABS: LYMPHOCYTES # (AUTO) 0.7 /CMM (0.8-4.8); PLATELET COUNT (AUTO) 209 /CMM (150-450)
[2019-11-05 08:42] LABS: BASOPHILS % (AUTO) 0.2 % (0.0-2.0); EOSINOPHILS % (AUTO) 0.1 % (0.0-6.0); HEMATOCRIT 40 % (39-51); HEMOGLOBIN 12.8 g/dL (13.5-17.5); LYMPHOCYTES % (AUTO) 4.6 % (20.0-44.0); MEAN CORPUSCULAR HGB CONC 33 g/dl (31.0-36.0); MEAN CORPUSCULAR VOLUME 88 fL (80-96); MONOCYTES # (AUTO) 0.5 /CMM (0.1-1.30); MONOCYTES % (AUTO) 3.2 % (2.0-12.0); NEUTROPHILS # (AUTO) 13.8 /CMM (1.8-8.9); NEUTROPHILS % (AUTO) 91.9 % (43.0-81.0); RED BLOOD CELL COUNT(AUTO) 4.48 MIL/uL (4.5-6.0)
[2019-11-05] MEDS: PANTOPRAZOLE 40 MG VIAL IV SCH ×2 (08:50→20:01)
[2019-11-05] MEDS: LEVETIRACETAM (500MG) 500 MG in IV NS 0.9% 100 ML IV SCH ×2 (08:50→20:01)
[2019-11-05 11:32] LABS: C-REACTIVE PROTEIN 23.1 mg/dL (0.0-0.9)
[2019-11-05 12:00] VITALS: BP 113/70
[2019-11-05 16:00] VITALS: BP 113/70
--- NOTE | 2019-11-05 18:30 | NUR ---
Tele/RN Closing note Patient in bed comfortably, no c/o pain or discomfort at this time. Respiratory even and unlabored with oxygen at 2LPM, O2sat 100%, skin is warm to touch, kept clean/dry, intact IV sit. Keep low bed position with locked wheel and elevated head of bed for secure airway, call light within reach, will endorse shift engineer.
--- NOTE | 2019-11-05 19:00 | NUR ---
SUPERVISOR FRAME ASSEMBLY OPENING NOTES: Received pt awake in bed, A&Ox2-3 on isolation for R/O Covid. SR on tele monitor. On 2L/min NC tolerating well. No SOB or respiratory distress noted. No pain noted at this time. IV site on RAC patent and flushing, with NS running at 75ml/hr. Tolerating well. Dressing c/d/i. Safety measures in place. Will continue to monitor.
[2019-11-05 20:00] VITALS: BP 99/68
--- NOTE | 2019-11-05 22:35 | NUR ---
PRIVATE EQUITY ANALYST NOTE: Pt's vanco trough: 11. Will administer 2300 dose of Vanco.
[2019-11-06] VITALS: BP 108/69
[2019-11-06] MEDS: DEXAMETHASONE SOD PHOSPHATE 4 MG/ML VIAL IV SCH ×5 (00:05→23:02)
[2019-11-06] MEDS: PIPERACILLIN /TAZOBACTAM 3.375 G in IV D5W 50 ML IV SCH ×5 (00:05→23:54)
[2019-11-06] MEDS: IV NS 0.9% 1,000 ML IV PRN (00:06)
--- NOTE | 2019-11-06 03:48 | NUR ---
SUPERVISOR WELDING EQUIPMENT REPAIRER NOTE: Gave report to MOISES Kat for LYRIC.
[2019-11-06 04:00] VITALS: BP 112/70
[2019-11-06] MEDS: VANCOMYCIN HCL 0.75 GM in IV D5W 250 ML IV SCH ×3 (06:13→23:02)
--- NOTE | 2019-11-06 06:35 | NUR ---
BALLAST CLEANING MACHINE OPERATOR NOTES ON BED A/O X3-4,ABLE TO VERBALIZED NEEDS.WITH CONDOM CATH IN PLACE DRAINING YELLOWISH OUTPUT.CALL LIGHT IN REACH,NEEDS ATTENDED,AFEBRILE.
[2019-11-06 07:24] LABS: BASOPHILS # (AUTO) 0.1 /CMM (0.0-0.2); BASOPHILS % (AUTO) 0.4 % (0.0-2.0); HEMATOCRIT 38 % (39-51); LYMPHOCYTES # (AUTO) 0.6 /CMM (0.8-4.8); LYMPHOCYTES % (AUTO) 3.8 % (20.0-44.0); MEAN CORPUSCULAR HGB CONC 32 g/dl (31.0-36.0); MEAN CORPUSCULAR VOLUME 87 fL (80-96); MONOCYTES # (AUTO) 0.7 /CMM (0.1-1.30); MONOCYTES % (AUTO) 4.2 % (2.0-12.0); NEUTROPHILS # (AUTO) 15.2 /CMM (1.8-8.9); NEUTROPHILS % (AUTO) 91.6 % (43.0-81.0); PLATELET COUNT (AUTO) 283 /CMM (150-450); RED BLOOD CELL COUNT(AUTO) 4.29 MIL/uL (4.5-6.0); WHITE BLOOD COUNT (AUTO) 16.6 K/uL (4.3-11.0)
--- NOTE | 2019-11-06 07:25 | NUR ---
FRONT DESK ASSISTANT NOTES PATIENT RESTING IN BED, NO RESPIRATORY DISTRESS, ON RA SPO2 AT 96%. PATIENT WITH NO C/O PAIN AT THIS TIME. SKIN WARM TO TOUCH, IV ACCESS ON THE RAC #18G IN TACT AND PATENT, IV NS RUNNING AT 75ML/HR. PATIENT ON ROLL ON MAN SR 76. PATIENT'S NEEDS ATTENDED, BED ON LOWEST LOCKED POSITION, CALL LIGHT WITHIN REACH. WILL CONTINUE TO MONITOR.
[2019-11-06 07:34] LABS: CALCIUM, SERUM 8.3 mg/dL (8.5-10.1); CREATININE 0.8 mg/dL (0.6-1.3); POTASSIUM 3.9 mmol/L (3.5-5.1)
[2019-11-06 08:00] VITALS: BP 121/73
[2019-11-06] MEDS: PANTOPRAZOLE 40 MG VIAL IV SCH ×2 (08:27→20:05)
[2019-11-06] MEDS: LEVETIRACETAM (500MG) 500 MG in IV NS 0.9% 100 ML IV SCH ×2 (08:50→20:05)
[2019-11-06 12:00] VITALS: BP_SYST 124; BP_SYST 126; BP_DIAS 72
[2019-11-06 16:00] VITALS: BP 128/95
--- NOTE | 2019-11-06 19:25 | NUR ---
TRACTOR ENGINE ASSEMBLER OPENING NOTES: RECEIVED PT ON 2LPM VIA NC AND IS TOLERATING WELL. PT IS A/XO3 BUT APPEARS TO BE GUARDED. PT HAS IV ON R AC #18 AND IS BEING INFUSED WITH IV NS AT 75ML/HR. PT HAS CONDOM CATH IN PLACE AND IS DRAINING YELLOW URINE IN BAG. PT ON TELE MONITOR AND READING SHOWS SR AT THIS TIME. BED KEPT IN LOW, LOCKED POSITION AND SIDE RAILS X 2 UP. PT REQUESTING FOR CELLPHONE TO BE CHARGED. NO SOB NOTED. NO S/S OF DISTRESS. CALL LIGHT WITHIN REACH. WILL CONTINUE TO MONITOR PT.
[2019-11-06 20:00] VITALS: BP 128/74
[2019-11-07] VITALS (7 sets, daily range): BP systolic 111–146; BP diastolic 67–81
[2019-11-07] MEDS: DEXAMETHASONE SOD PHOSPHATE 4 MG/ML VIAL IV SCH ×4 (05:01→23:16)
[2019-11-07] MEDS: PIPERACILLIN /TAZOBACTAM 3.375 G in IV D5W 50 ML IV SCH ×3 (05:01→17:22)
[2019-11-07] MEDS: IV NS 0.9% 1,000 ML IV PRN ×2 (05:18→21:27)
[2019-11-07] MEDS: VANCOMYCIN HCL 0.75 GM in IV D5W 250 ML IV SCH ×3 (06:00→23:13)
--- NOTE | 2019-11-07 06:48 | NUR ---
MOTOR BUILDER WINDER CLOSING NOTES: ALL NEEDS WERE ATTENDED AND ANTICIPATED FOR. PT KEPT CLEAN, DRY, AND COMFORTABLE. PT ON ROOM AIR AND IS TOLERATING WELL. NO SOB NOTED. NO S/S OF DISTRESS. PT HAS IV ON R AC #18G AND IS BEING INFUSED WITH VANCO AT THIS TIME AT 250ML/HR. PT REMAINS WITH CONDOM CATH. OUTPUT WAS 750 ML. BED KEPT IN LOW ,LOCKED POSITION, AND SIDE RAILS X 2UP. CALL LIGHT WITHIN REACH. PT SLEEPING AT THIS TIME. PT REMAINS A/OX3 AND CAN BE AGITATED AT TIMES. PT ON TELE MONITOR AND READING SHOWS SR 60S. WILL ENDORSE TO AM NURSE FOR LYRIC.
[2019-11-07 07:35] LABS: HEMATOCRIT 39 % (39-51); HEMOGLOBIN 12.5 g/dL (13.5-17.5); LYMPHOCYTES # (AUTO) 0.6 /CMM (0.8-4.8); LYMPHOCYTES % (AUTO) 3.5 % (20.0-44.0); MEAN CORPUSCULAR HGB CONC 32 g/dl (31.0-36.0); MEAN CORPUSCULAR VOLUME 87 fL (80-96); MONOCYTES # (AUTO) 0.7 /CMM (0.1-1.30); MONOCYTES % (AUTO) 4.2 % (2.0-12.0); NEUTROPHILS # (AUTO) 16.3 /CMM (1.8-8.9); NEUTROPHILS % (AUTO) 92.3 % (43.0-81.0); PLATELET COUNT (AUTO) 286 /CMM (150-450); WHITE BLOOD COUNT (AUTO) 17.7 K/uL (4.3-11.0)
[2019-11-07 07:42] LABS: CALCIUM, SERUM 8.8 mg/dL (8.5-10.1); POTASSIUM 3.9 mmol/L (3.5-5.1)
--- NOTE | 2019-11-07 07:57 | NUR ---
MOLD PRESSER OPENING NOTES: RECEIVED PATIENT ON 2LPM VIA NASAL CANNULA AND IS TOLERATING WELL. NO SOB NOTED. NO S/S OF DISTRESS. PATIENT IS A/XO3. PATIENT HAS IV ON RIGHT AC #18 PATENT AND INTACT WITH IV NS AT 75ML/HR ON AND INFUSING WELL. PATIENT HAS CONDOM CATH IN PLACE AND IS DRAINING YELLOW URINE IN BAG. PT ON TELE MONITOR AND READING SHOWS SINUS RHYTHM 83 BPM. BED KEPT IN LOW, LOCKED POSITION AND SIDE RAILS X 2 UP. CALL LIGHT WITHIN REACH. WILL CONTINUE TO MONITOR.
[2019-11-07] MEDS: PANTOPRAZOLE 40 MG VIAL IV SCH ×2 (08:46→21:27)
[2019-11-07] MEDS: LEVETIRACETAM (500MG) 500 MG in IV NS 0.9% 100 ML IV SCH ×2 (08:46→19:52)
[2019-11-07 09:11] LABS: BAND % (MANUAL) 2 % (0.0-5.0); LYMPHOCYTES % (MANUAL) 1 % (16-48); MONOCYTES % (MANUAL) 4 % (0-11.0); MYELOCYTES % 1 % (0-0); NEUTROPHILS % (MANUAL) 92 (42-76)
--- NOTE | 2019-11-07 18:44 | NUR ---
TELE/RN CLOSING NOTES PATIENT ON 2LPM VIA NASAL CANNULA AND IS TOLERATING WELL. NO SOB NOTED. NO S/S OF DISTRESS. PATIENT IS A/XO3. PATIENT HAS IV ON RIGHT AC #18 PATENT AND INTACT WITH IV NS AT 75ML/HR ON AND INFUSING WELL. PATIENT HAS CONDOM CATH IN PLACE AND IS DRAINING YELLOW URINE IN BAG. PATIENT ON TELE MONITOR AND READING SHOWS SINUS RHYTHM 81 BPM. SEEN AND EXAMINED BY MD WITH ORDERS MADE AND CARRIED OUT. ALL DUE MEDS WAS GIVEN. CHECKED AND TURNED PATIENT EVERY 2 HOURS. KEPT PATIENT DRY THE WHOLE TIME. BED KEPT IN LOW, LOCKED POSITION AND SIDE RAILS X 2 UP. CALL LIGHT WITHIN REACH. WILL ENDORSED TO PHARMACIST HOSPITAL FOR LYRIC.
--- NOTE | 2019-11-07 19:10 | NUR ---
RN OPENING NOTES RECEIVED PATIENT IN BED AWAKE, A/OX4, ABLE TO MAKE NEEDS KNOWN VERBALLY. DENIES ANY PAIN. ON TELE MONITOR SR WITH HR 80'S. ON 2LPM VIA NASAL CANNULA, TOLERATING WELL. NO SOB OR RESPIRATORY DISTRESS NOTED. IV SITE RIGHT AC #18 FLUSHING AND PATENT, WITH IV NS AT 75ML/HR, TOLERATING WELL. PATIENT ON DIAPER. CONDOM CATH INTACT AND DRAINING YELLOW URINE NOTED. SAFETY MEASURES MAINTAINED; HOB ELEVATED, BED LOW AND LOCKED POSITION, SIDE RAILS X2 UP, CALL LIGHT WITHIN REACH. WILL CONTINUE TO MONITOR.
[2019-11-08] VITALS: BP 137/88
--- NOTE | 2019-11-08 00:05 | NUR ---
RN NOTES PATIENT WOUND DRESSING ON RIGHT HIP NOTED SOAKED, PATIENT REFUSED DRESSING CHANGE DESPITE DISCUSSION OF RISKS AND BENEFITS. WILL CONT TO MONITOR.
[2019-11-08] MEDS: PIPERACILLIN /TAZOBACTAM 3.375 G in IV D5W 50 ML IV SCH ×4 (00:25→17:07)
--- NOTE | 2019-11-08 01:18 | NUR ---
REPORT GIVEN TO MOISES CAMARA FOR LYRIC.
[2019-11-08 01:50] VITALS: BP 142/85
--- NOTE | 2019-11-08 01:56 | NUR ---
RN NOTES PATIENT STABLE AND TRANSFERRED TO ROOM 312-1 VIA ACLS PROTOCOL.
--- NOTE | 2019-11-08 02:20 | NUR ---
recieved from CARMINE via bed alert and orientated x4. vi lilly and nery paper work his own slippers eyeglassess hernan ragland brought with the patient.
--- NOTE | 2019-11-08 04:25 | NUR ---
ENDING NOTES: CAME TO ROOM 312 FROM ROOM 110 ABOUT 0200am. aLERT AND ORIENTATED, SMILING, PHONE AND CHARHER IN HIS HAND, EYEGLASSES ROBE, SLIPPERS AND A ZIPPER WALLET AND PAPERS . PAPERS PLACE IN A SOH FOLDER TO KEEP THEM TOGETHER ANS PLACED IN THE TOP DRAWER HE WANTED THEM TO BE PLACED. O2 ON 3 LITERS SATS 94%. CONDOM CATH WORKING URINE CLEAR YELLOW CALL LIGHT REVIEWED WITH THE PATIENT
[2019-11-08] MEDS: HYDROCODONE/APAP 5/325MG 1 EACH TABLET PO PRN ×2 (05:00→23:18)
[2019-11-08] MEDS: DEXAMETHASONE SOD PHOSPHATE 4 MG/ML VIAL IV SCH ×4 (05:24→23:21)
--- NOTE | 2019-11-08 07:20 | NUR ---
MS RN OPENING NOTES RECEIVED PT IN BED, AWAKE, A/O X3-4. PT ON SUPPLEMENTARY OXYGEN AT 2LPM VIA NC, WITH NO ACUTE RESPIRATORY DISTRESS NOTED. PT DENIES ANY PAIN OR DISCOMFORT AT THIS TIME. PT DENIES ANY QUESTIONS AND CONCERNS AT THE MOMENT WELL. IVF NS AT 75 ML/HR TO RAC G18, INTATCT AND INFUSING WELL. CONDOM CATH IN PLACE NOTED. VANCO TROUGH AT 6AM STILL PENDING AT THIS TIME. PT KEPT COMFORTABLE. CALL LIGHT KEPT WITHIN REACH. PT'S BED IN LOWEST, LOCKED POSITION WITH SRX3. WILL CONTINUE PLAN OF CARE.
[2019-11-08 07:22] LABS: CALCIUM, SERUM 8.7 mg/dL (8.5-10.1); CREATININE 0.8 mg/dL (0.6-1.3); POTASSIUM 3.8 mmol/L (3.5-5.1)
[2019-11-08 08:00] VITALS: BP 144/87
[2019-11-08 08:00] LABS: C-REACTIVE PROTEIN 4.1 mg/dL (0.0-0.9)
[2019-11-08] MEDS: VANCOMYCIN HCL 0.75 GM in IV D5W 250 ML IV SCH ×3 (08:07→23:21)
[2019-11-08] MEDS: PANTOPRAZOLE 40 MG VIAL IV SCH ×2 (08:15→21:48)
[2019-11-08] MEDS: LEVETIRACETAM (500MG) 500 MG in IV NS 0.9% 100 ML IV SCH ×2 (09:07→21:13)
--- NOTE | 2019-11-08 09:40 | NUR ---
MS RN NOTES ORTHO/CC/PA IN THE UNIT. INFORMED ABOUT DEHISCED RIGHT HIP INCISION/SCAR WAS DONE A MONTH AGO. PER PA/CC WILL SEE PT TODAY WELL. WILL CONTINUE TO MONITOR.
[2019-11-08 10:00] VITALS: BP 144/87
--- NOTE | 2019-11-08 10:14 | NUR ---
WOUND CARE CONSULT: PT SEEN WITH FAUZIA SIMMONS FOR SKIN ASSESSMENT. PT PRESENTS WITH RT HIP DEHISCED SURGICAL WOUND, PRESENT ON ADMISSION. ORDERS FOR WOUND CARE RECEIVED AND DISCUSSED WITH NURSING STAFF. DRESSING CHANGE DONE BY Cheo BURNS. PT ALSO NOTED TO HAVE VERY BONY SACRAL AREA WITH BLANCHABLE REDNESS AND INCONTINENCE ASSOCIATED SKIN DAMAGE TO LOWER BUTTOCKS. PT HAS FREQUENT STOOLS. RECOMMENDATIONS MADE FOR SKIN PROTECTION. DISCUSSED WITH NURSING STAFF. WILL SEE PRN. RUBIN IN AGREEMENT WITH PLAN OF CARE. CURRENT JONAH SCORE IS 15. Addendum: 11/08/19 at 1016 by SHARON FRANK WNDNU Amended: Links added.
--- NOTE | 2019-11-08 10:15 | NUR ---
MS RN NOTES SEEN AND EVALUATED BY WOUND NURSE/SHARON. PICTURE TAKEN AND FILED IN THE CHART FOR SACRAL AREA. WILL CONTINUE PLAN OF CARE
[2019-11-08 16:00] VITALS: BP 140/86
--- NOTE | 2019-11-08 16:48 | NUR ---
MS RN NOTES RECEIVED ORDER FROM DR PORTILLO. TO DISCHARGE PT WITH KEPPRA 500MG BID AND DECADRON 4MG TID PO. WILL ENDORSE TO INCOMING NIGHT NURSE FOR LYRIC.
--- NOTE | 2019-11-08 18:48 | NUR ---
MS RN CLOSING NOTES PT REMAINS IN BED, AWAKE, A/O X3-4.PT TOLERATING RA, WITH NO ACUTE RESPIRATORY DISTRESS NOTED. PT DENIES ANY PAIN OR DISCOMFORT AT THIS TIME. IVF NS AT 75 ML/HR TO LFA G20, INTACT AND INFUSING WELL. PIV TO RAC G20, FLUSHED WITH NS, INTACT AND OPERATIONAL. CONDOM CATH IN PLACE NOTED. ALL NEEDS AND CARE ATTENDED. PT KEPT COMFORTABLE. CALL LIGHT KEPT WITHIN REACH. PT'S BED IN LOWEST, LOCKED POSITION WITH SRX3. WILL ENDORSE TO INCOMING NIGHT NURSE FOR LYRIC.
--- NOTE | 2019-11-08 19:10 | NUR ---
MS RN NOTES RECEIVED PT IN BED AWAKE AND ABLE TO MAKE NEED SKNOWN. PT A/O X3. RESPIRATIONS EVEN AND UNLABORED WITH NO S/S OF ACUTE DISTRESS OR SOB NOTED. PT NOTED WITH RAC #20G AND LFA #20G PATENT AND INTACT INFUSING NS AT 75 ML/HR. PT NOTED WITH CONDOM CATH IN PLACE NOTED. NO COMPLAINTS OF PAIN AT THIS TIME. SAFETY MEASURES IN PLACE WITH BED IN LOWEST LOCKED POSITION WITH SIDE RAILS UP X2. CALL LIGHT WITHIN REACH. WILL CONTINUE TO MONITOR.
[2019-11-08 22:00] VITALS: BP 138/83
[2019-11-08] MEDS: IV NS 0.9% 1,000 ML IV PRN (23:21)
[2019-11-09] MEDS: PIPERACILLIN /TAZOBACTAM 3.375 G in IV D5W 50 ML IV SCH ×3 (00:17→11:58)
[2019-11-09] MEDS: DEXAMETHASONE SOD PHOSPHATE 4 MG/ML VIAL IV SCH ×2 (06:42→11:58)
[2019-11-09 06:59] LABS: CALCIUM, SERUM 8.7 mg/dL (8.5-10.1); CREATININE 0.8 mg/dL (0.6-1.3); POTASSIUM 3.8 mmol/L (3.5-5.1)
--- NOTE | 2019-11-09 07:25 | NUR ---
MS RN OPENING NOTES RECEIVED PT IN BED, AWAKE, A/O X3. PT ON SUPPLEMENTARY OXYGEN AT 2LPM VIA NC, WITH NO ACUTE RESPIRATORY DISTRESS NOTED. PT DENIES ANY PAIN OR DISCOMFORT AT THIS TIME. PT DENIES ANY QUESTIONS AND CONCERNS AT THE MOMENT WELL. IVF NS AT 75 ML/HR TO LFA G20, INTACT AND INFUSING WELL. PIV TO RAC G20, FLUSHED WITH NS, INTACT AND OPERATIONAL. CONDOM CATH IN PLACE NOTED. PT KEPT COMFORTABLE. CALL LIGHT KEPT WITHIN REACH. PT'S BED IN LOWEST, LOCKED POSITION WITH SRX3. WILL CONTINUE PLAN OF CARE.
[2019-11-09] MEDS: VANCOMYCIN HCL 0.75 GM in IV D5W 250 ML IV SCH (07:44)
--- NOTE | 2019-11-09 07:46 | NUR ---
MS RN NOTES PT IN BED AWAKE AND ABLE TO MAKE NEEDS KNOWN. PT A/O X3. RESPIRATIONS EVEN AND UNLABORED WITH NO S/S OF ACUTE DISTRESS OR SOB NOTED THROUGHOUT SHIFT. PT NOTED WITH RAC #20G AND LFA #20G PATENT AND INTACT INFUSING NS AT 75 ML/HR. PT NOTED WITH CONDOM CATH IN PLACE NOTED. NO COMPLAINTS OF PAIN AT THIS TIME. PT KEPT CLEAN, DRY, AND COMFORTABLE. SAFETY MEASURES IN PLACE WITH BED IN LOWEST LOCKED POSITION WITH SIDE RAILS UP X2. CALL LIGHT WITHIN REACH. WILL ENDORSE TO ONCOMING NURSE FOR LYRIC.
[2019-11-09] MEDS: PANTOPRAZOLE 40 MG VIAL IV SCH (08:14)
[2019-11-09] MEDS: LEVETIRACETAM (500MG) 500 MG in IV NS 0.9% 100 ML IV SCH (09:07)
--- NOTE | 2019-11-09 11:51 | NUR ---
MS RN CLOSING NOTES PT GOING BACK HOME WITH HOSPICE CARE. PT ON SUPPLEMENTARY OXYGEN AT 2LPM VIA NC, WITH NO ACUTE RESPIRATORY DISTRESS NOTED. PT DENIES ANY PAIN OR DISCOMFORT AT THE TIME OF DISCHARGE. PT DENIES ANY QUESTIONS AND CONCERNS AT THE MOMENT WELL. PT ABLE TO REVIEW AND ABLE SIGN DISCHARGE INSTRUCTIONS AND INVENTORY LIST, MISSING SHORTS BUT PT OKAY WITH IT AND DOESN'T WANT A REPLACEMENT. SKIN ISSUES, PICTURES TAKEN AND FILED IN THE CHART. CM ARRANGED HOSPICE AT HOME. PIV TO RAC G20 AND LFA G20, BOTH REMOVED AND APPLIED DRY DRESSING. PT HAS CONDOM CATH IN PLACE AND PREFERS TO TAKE IT AT HOME. ALL NEEDS AND CARE ATTENDED AND PROVIDED. HOME MEDICATION GAVE BACK TO THE PATIENT. 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 TRANSPORTED PT VIA GURNEY TO AN AMBULANCE. HOSPITALIST/SA AND CN/DANYA AWARE OF DISCHARGE. PT LEFT THE UNIT AT 1150.
[2019-11-09] MEDS ORDERED: LEVETIRACETAM (250 MG) 250 MG TABLET PO SCH (21:00)
== END 2019-11-09 13:50 | disposition hospice, home (50) | DRG 871 ==
LOC: EDBD 12:46 → ER 12:46 → TELE1 15:51 → MEDSG1 11-07 22:48 → MED 11-08 01:35
PROVIDERS: ADMIT Nurse Practitioner Acute Care
DX: A41.9 Sepsis, unspecified organism (principal); J18.9 Pneumonia, unspecified organism; G93.6 Cerebral edema; J90 Pleural effusion, not elsewhere classified; C78.00 Secondary malignant neoplasm of unspecified lung; E87.2 Acidosis; C79.31 Secondary malignant neoplasm of brain; K92.2 Gastrointestinal hemorrhage, unspecified; G93.40 Encephalopathy, unspecified; C78.7 Secondary malignant neoplasm of liver and intrahepatic bile duct; C79.70 Secondary malignant neoplasm of unspecified adrenal gland; D68.8 Other specified coagulation defects; E44.0 Moderate protein-calorie malnutrition; M46.28 Osteomyelitis of vertebra, sacral and sacrococcygeal region; J98.11 Atelectasis; I25.10 Atherosclerotic heart disease of native coronary artery without angina pectoris; E03.9 Hypothyroidism, unspecified; R53.1 Weakness; Z66 Do not resuscitate; Z85.048 Personal history of other malignant neoplasm of rectum, rectosigmoid junction, and anus; Z86.711 Personal history of pulmonary embolism; Z90.49 Acquired absence of other specified parts of digestive tract; R74.0 Nonspecific elevation of levels of transaminase and lactic acid dehydrogenase [LDH]; E88.09 Other disorders of plasma-protein metabolism, not elsewhere classified; M62.50 Muscle wasting and atrophy, not elsewhere classified, unspecified site; Z68.21 Body mass index [BMI] 21.0-21.9, adult; D89.9 Disorder involving the immune mechanism, unspecified; E61.1 Iron deficiency; G40.909 Epilepsy, unspecified, not intractable, without status epilepticus; Z79.01 Long term (current) use of anticoagulants; Z87.19 Personal history of other diseases of the digestive system; R93.89 Abnormal findings on diagnostic imaging of other specified body structures; Z96.641 Presence of right artificial hip joint; W19.XXXA Unspecified fall, initial encounter; Y93.9 Activity, unspecified; Y92.009 Unspecified place in unspecified non-institutional (private) residence as the place of occurrence of the external cause
CPT/HCPCS: 36415; 70450-TC; 71045-TC; 71270-TC; 80048-TC; 80076-TC; 80202-TC; 82378; 82728-TC; 82962-TC; 83605-TC; 83615-TC; 83735-TC; 83880; 84100-TC; 84484-TC; 85025-TC; 85396; 85730-TC; 86140-TC; 86850-TC; 87040-TC; 87081-TC; A4349; A6253; A6403; A6407; C9113; G0378; J1100; J1953; J2543; J3370; J7030; J7060; Q9967; U0003-CS